=== PATIENT | female | born 1980 | race African-American/Black ===

== ENCOUNTER 2017-08-10 06:47 | Day surgery (SDC) | payer BC ==
[~2017-08-10] VITALS: Ht 170.2 cm; Wt 102.5 kg
[2017-08-10] MEDS ORDERED: LACTATED RINGERS 1,000 ML IV SCH (07:30)
[2017-08-10 07:55] LABS: HEMATOCRIT. 25.4 % (36.0-48.0); HEMOGLOBIN. 7.2 g/dL (12.0-16.0); MEAN CORPUSCULAR HEMOGLOBIN 15.2 pg (28.0-32.0); MEAN CORPUSCULAR VOLUME 53.8 fL (81.0-99.0); MEAN PLATELET VOLUME 8.5 fl (7.4-10.4); PLATELET 599 x1000/uL (130-400); RED BLOOD CELL COUNT 4.72 mill/uL (4.2-5.4)
[2017-08-10 08:08] LABS: CLARITY URINE CLEAR (CLEAR); COLOR URINE YELLOW (YELLOW); KETONES URINE NEGATIVE (NEGATIVE); LEUKOCYTE ESTERASE URINE NEGATIVE (NEGATIVE); NITRITE URINE NEGATIVE (NEGATIVE); OCCULT BLOOD URINE 3+ (NEGATIVE); PROTEIN URINE NEGATIVE (NEGATIVE); SPECIFIC GRAVITY URINE 1.014 (1.005-1.030); UROBILINOGEN URINE 0.2 E.U./dL (0.2-1.0)
[2017-08-10 08:10] LABS: UCG SCREEN POSITIVE
[2017-08-10 08:17] LABS: PLATELET ESTIMATE INCREASED
[2017-08-10] MEDS ORDERED: FENTANYL CITRATE/PF 50MCG/ML 2ML VIAL ONE ×2 (08:52→09:52)
[2017-08-10] MEDS ORDERED: MIDAZOLAM HCL 2 MG/2 ML VIAL ONE (08:53)
[2017-08-10] MEDS ORDERED: PROPOFOL 200MG/20ML VIAL IV ONE (08:53)
[2017-08-10] MEDS ORDERED: ROCURONIUM BROMIDE 10MG/ML VIAL 5ML IV ONE ×2 (08:53→10:45)
[2017-08-10] MEDS ORDERED: SUCCINYLCHOLINE CHLORIDE 200MG/10ML VIAL IV ONE (09:28)
[2017-08-10] MEDS ORDERED: CEFAZOLIN SODIUM 1000MG/VIAL ONE (09:28)
[2017-08-10] MEDS ORDERED: ESMOLOL HCL 10MG/ML 10ML VIAL IV ONE (09:31)
[2017-08-10] MEDS ORDERED: DEXAMETHASONE 4MG/ML 1ML VIAL ONE (09:34)
[2017-08-10] MEDS ORDERED: ONDANSETRON HCL 4MG/2ML VIAL ONE (09:35)
[2017-08-10] MEDS ORDERED: SKIN ADHESIVE 0.7 GM EA TOP ONE (10:09)
[2017-08-10] MEDS ORDERED: GLYCOPYRROLATE 0.2 MG/ML 2ML VIAL ONE (11:08)
[2017-08-10] MEDS ORDERED: FENTANYL CITRATE/PF 50MCG/ML 2ML VIAL IV PRN (11:15)
[2017-08-10] MEDS ORDERED: MEPERIDINE HCL/PF 25MG/ML CPJ IV PRN (11:15)
[2017-08-10] MEDS ORDERED: ONDANSETRON HCL 4MG/2ML VIAL IV PRN (11:15)
[2017-08-10] MEDS: HYDROMORPHONE HCL/PF 2MG/ML CPJ IV PRN ×2 (12:01→12:15)
[2017-08-10 12:15] VITALS: BP 113/70
== END 2017-08-10 14:05 | disposition home or self-care (01) ==
LOC: OR 06:47
PROVIDERS: ATTEND Obstetrics & Gynecology Obstetrics
DX: O00.102 Left tubal pregnancy without intrauterine pregnancy (principal); N93.9 Abnormal uterine and vaginal bleeding, unspecified; N80.0 Endometriosis of uterus; I10 Essential (primary) hypertension; Z83.3 Family history of diabetes mellitus; Z80.9 Family history of malignant neoplasm, unspecified; Z82.49 Family history of ischemic heart disease and other diseases of the circulatory system
CPT/HCPCS: 36415; 58662; 59820; 81003; 81025; 85025; 86850; 86900; 86901; 88305; G0168; J0330; J0690; J1100; J1170; J2250; J2405; J3010; J3490; J7120; J2704